=== PATIENT | male | born 1955 | race Caucasian/White ===

== ENCOUNTER 2018-12-10 16:29 | Inpatient (IN) | payer BC ==
[2018-12-10] MEDS ORDERED: Aspirin 81 mg CHEW TAB* 81 MG TAB.CHEW ONE (16:35)
[2018-12-10] MEDS ORDERED: Nitroglycerin TAB 0.4 MG* 0.4 MG TAB ONE (16:35)
[2018-12-10] MEDS ORDERED: Ticagrelor* 90 MG TAB PO ONE ×3 (16:36→19:52)
[2018-12-10] MEDS ORDERED: nitroGLYCERIN DRIP* 0 MCG/0 ML BTL ONE (16:36)
[2018-12-10] MEDS ORDERED: Morphine 4 MG/ML VIAL (1 ml) 4 MG/ML VIAL ONE (16:36)
[2018-12-10] MEDS ORDERED: Ondansetron INJ* 2 MG/ML VIAL ONE (16:36)
[2018-12-10] MEDS ORDERED: Heparin for STEMI(*) 5,000 UNITS/ML 1 ML VIAL IV ONE ×2 (16:36→16:37)
[2018-12-10] MEDS ORDERED: Aspirin 81 mg CHEW TAB* 81 MG TAB.CHEW PO ONE (16:37)
[2018-12-10] MEDS ORDERED: NS 0.9% 1000 ML** 1,000 ML IV ONE (16:37)
--- NOTE | 2018-12-10 16:44 | ED ---
HPI Chest Pain - HPI Summary HPI Summary: This patient is a 63 year old M presenting to [facility] with a chief complaint of CP since 1600. Patient states that he has chest pain that is characterized as burning. The patient rates the pain 8/10 in severity. Symptoms aggravated by nothing. Symptoms alleviated by nothing. Patient reports burning chest pain, nausea, and diaphoresis. Patient denies vomiting. Pt has hx HTN on lisinopril. Neg hx DM, Neg hx hyperlipidemia. Nonsmoker. +fam hx CAD. Pt has no prior hx CAD or CT. Pt does not take a daily ASA. Pt drove himself to the ED. 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 Allergies Allergy/AdvReac Type Severity Reaction Status Date / Time No Known Allergies Allergy Verified 12/10/18 17:07 - History of Current Complaint Hx Obtained From: Patient Onset/Duration: Started Hours Ago - "1/2 hour ago" Timing: Constant Initial Severity: Moderate Current Severity: Severe Pain Intensity: 8 Pain Scale Used: 0-10 Numeric Chest Pain Location: Diffuse Chest Pain Radiates: No Character: Burning Aggravating Factor(s): Nothing Alleviating Factor(s): Nothing Associated Signs and Symptoms: Positive: Chest Pain, Diaphoresis, Nausea. Negative: Vomiting - Allergy/Home Medications Allergies/Adverse Reactions: Allergies Allergy/AdvReac Type Severity Reaction Status Date / Time No Known Allergies Allergy Verified 12/10/18 17:07 PMH/Surg Hx/FS Hx/Imm Hx Previously Healthy: No Cardiovascular History: Reports: Hx Hypertension - Surgical History Surgical History: None Infectious Disease History: No - Family History Known Family History: Positive: Cardiac Disease - Social History Alcohol Use: None Hx Substance Use: No Substance Use Type: Reports: None Hx Tobacco Use: No Smoking Status (MU): Never Smoked Tobacco Review of Systems Positive: Skin Diaphoresis Positive: Chest Pain Respiratory: Negative Positive: Nausea. Negative: Vomiting Positive: no symptoms reported Musculoskeletal: Negative Skin: Negative Neurological: Negative Psychological: Normal All Other Systems Reviewed And Are Negative: Yes Physical Exam - Summary Physical Exam Summary: Appearance: Ill-appearing, severe pain distress, well-nourished Skin: Warm, color reflects adequate perfusion, diaphoretic Head: Normal Head/Face inspection, atraumatic Eyes: Conjunctiva clear ENT: Normal inspection Neck: Supple, no nodes, no JVD Respiratory: Lungs clear, normal breath sounds, no respiratory distress Cardio: RRR, No murmur, pulses normal, brisk capillary refill Abdomen: Soft, nontender Bowel sounds: Present Musculoskeletal: Strength Intact/ROM intact, no calf tenderness, no edema. Psychological: Normal Neuro: Alert, muscle tone normal, no focal deficit Triage Information Reviewed: Yes Vital Signs Reviewed: Yes Diagnostics - Laboratory Result Diagrams: 12/10/18 16:38 12/10/18 16:38 Lab Statement: Any lab studies that have been ordered have been reviewed, and results considered in the medical decision making process. - Radiology Chest Xray Radiology Interpretation Completed By: ED Physician Summary of Radiographic Findings: Chest Xray reveal, per radiologist, cardiomegaly without evidence for pulmonary edema. ED Physician has reviewed this report. - EKG 1631 Cardiac Rate: NL - 93 bpm EKG Rhythm: Sinus Rhythm ST Segment: Non-Specific - not "Non-Specific"; nlAVIVCT nlQTc 3mm STelevation V1 -V5 w/o recip changes Ectopy: None EKG Comparison: Other - no prior to compare Summary of EKG Findings: SR, anterior wall STEMI. Re-Evaluation - Re-Evaluation First Eval Re-Evaluation Time: 16:32 Change: Unchanged Comment: Dr. Love saw patient in sub waiting. STEMI called in sub waiting. Patient was brought directly to room. Dr. Love was in room continuously with Dr. Back and hospital laboratory technician team until pt was taken to the hospital laboratory technician. Chest Pain Course/Dx - Course Course Of Treatment: This patient is a 63 year old M presenting to [facility] by private car with a chief complaint of CP since 1600. EKG done in subwaiting showed anterior wall STEMI and STEMI alert was called. Test results with no significant abnormalities except for Potassium 2.8, Anion Gap 15, Creatinine 1.25, Glucose 141, Lactic Acid 2.8, Troponin 0.07. Chest Xray reveals, per radiologist, cardiomegaly without evidence for pulmonary edema. ED Physician has reviewed this report. EKG shows SR, 93, 3mm ST elevations V1-V5, without reciprocal changes. In the ED course the patient was given Brilinta 180mg, Heparin 5,000 units, Aspirin [address] Back agrees with patient's STEMI and says to proceed with protocol. 1648 Patient is brought up to Rf Engineer. - Chest Pain Differential Diagnosis/HQI/PQRI: Acute CT, ACS - Diagnoses Provider Diagnoses: STEMI (ST elevation myocardial infarction), Hypertension, poor control, Hypokalemia During the Visit The Following Alert/Code Occurred: STEMI - Provider Notifications Discussed Care Of Patient With: Davidson Back - Cardiology Time Discussed With Above Provider: 16:35 Instructed by Provider To: Other - Dr. Back agrees with patient's STEMI and states to proceed with protocol. Dr. Back is present in the ED immediately after notification. 1648 Patient is brought up to Rf Engineer. - Critical Care Time Critical Care Time: 30-74 min - 19 minutes Discharge ED - Sign-Out/Discharge Documenting (check all that apply): Patient Departure - admi Patient Received Moderate/Deep Sedation with Procedure: No - Discharge Plan Condition: Stable Disposition: ADMITTED TO [facility] - Billing Disposition and Condition Condition: STABLE Disposition: Admitted to [facility] - Attestation Statements Document Initiated by Scribe: Yes Documenting Scribe: Aleida Jenkins Provider For Whom Shayla is Documenting (Include Credential): Dr. Vero Love MD Scribe Attestation: Aleida Kirkland scribed for Dr. Vero Love MD on 12/10/18 at 2334. Scribe Documentation Reviewed: Yes Provider Attestation: The documentation as recorded by the Aleida caraballo accurately reflects the service I personally performed and the decisions made by me, Dr. Vero Love MD Status of Scribe Document: Viewed
[2018-12-10 16:52] LABS: ABS Basophils 0.1 10^3/ul (0-0.2); ABS Eosinophils 0.1 10^3/ul (0-0.6); ABS Lymphocytes 2.7 10^3/ul (1.0-4.8); ABS Monocytes 0.9 10^3/ul (0-0.8); ABS Neutrophils 6.6 10^3/ul (1.5-7.7); Eosinophil % 1.2 %; Hematocrit 44 % (42-52); Hemoglobin 15.5 g/dL (14.0-18.0); Lymphocyte % 26.1 %; Mean Corpuscular HGB Conc 36 g/dL (31-36); Mean Corpuscular Hemoglobin 30 pg (27-31); Mean Corpuscular Volume 85 fL (80-94); Platelet Count 339 10^3/uL (150-450); Red Blood Count 5.15 10^6 /uL (4.18-5.48); Red Cell Distribution Width 13 % (10-15); White Blood Count 10.4 10^3/uL (3.5-10.8)
[2018-12-10 17:00] LABS: Activated Partial Thrombo Time 30.9 seconds (26.0-38.0); INR 0.95 (0.82-1.09)
[2018-12-10 17:13] LABS: ALT 21 U/L (7-52); AST 21 U/L (13-39); Albumin 4.8 g/dL (3.2-5.2); Albumin/Globulin Ratio 1.6 (1-3); Alkaline Phosphatase 78 U/L (34-104); Anion Gap 15 mmol/L (2-11); BUN/Creatinine Ratio 16.8 (8-20); Blood Urea Nitrogen 21 mg/dL (6-24); CO2 Carbon Dioxide 23 mmol/L (22-32); Calcium 9.8 mg/dL (8.6-10.3); Chloride 105 mmol/L (101-111); Creatine Kinase 146 U/L (10-223); EGFR African American 70.6 (>60); EGFR Non-African American 58.3 (>60); Glucose 141 mg/dL (70-100); LDL Cholesterol Direct 121 mg/dL; Potassium 2.8 mmol/L (3.5-5.0); Sodium 143 mmol/L (135-145); Total Protein 7.8 g/dL (6.4-8.9)
[2018-12-10 17:16] LABS: CKMB ng/mL 2.9 ng/mL (0.6-6.3)
[2018-12-10 17:20] LABS: Troponin I 0.07 ng/mL (<0.04)
[2018-12-10] MEDS ORDERED: Bivalirudin(*) 250 MG VIAL ONE ×2 (18:06)
[2018-12-10] MEDS ORDERED: Metoprolol Tartrate IV* 1 MG/ML 5 ML VIAL ONE ×2 (18:28→18:32)
[2018-12-10] MEDS ORDERED: fentaNYL* 50 MCG/ML 2 ML VIAL (100 MCG VIAL) IV PRN (18:42)
[2018-12-10] MEDS ORDERED: Acetaminophen TAB* 325 MG PO PRN (18:42)
[2018-12-10] MEDS ORDERED: Docusate CAP* 100 MG PO PRN (18:42)
[2018-12-10] MEDS ORDERED: Nitroglycerin TAB 0.4 MG* 0.4 MG TAB SL PRN (18:42)
[2018-12-10] MEDS ORDERED: Zolpidem TAB* 5 MG PO PRN (18:42)
[2018-12-10] MEDS ORDERED: Ondansetron INJ* 2 MG/ML VIAL IV PRN (18:42)
[2018-12-10] MEDS ORDERED: NS 0.9% 1000 ML** 1,000 ML IV SCH (18:45)
[2018-12-10] MEDS ORDERED: Amiodarone 360 MG IVPREMIX* 360 MG/200 ML BAG IV ONE (18:51)
[2018-12-10] MEDS ORDERED: Atorvastatin* 80 MG TAB PO ONE (19:07)
[2018-12-10] MEDS ORDERED: Metoprolol Tartrate TAB* 25 MG ONE (19:46)
[2018-12-10] MEDS ORDERED: Atorvastatin* 80 MG TAB ONE (19:46)
[2018-12-10] MEDS: Metoprolol Tartrate TAB* 25 MG PO SCH (19:48)
[2018-12-10] MEDS: Ticagrelor* 90 MG TAB PO SCH (19:53)
[2018-12-10] MEDS ORDERED: Heparin DRIP 25,000 UNITS(*) 25,000 UNITS/500 ML BAG IV SCH (22:00)
[2018-12-10 22:01] LABS: Creatine Kinase 750 U/L (10-223)
[2018-12-10 22:06] LABS: CKMB ng/mL 91.6 ng/mL (0.6-6.3)
[2018-12-10 22:07] LABS: Troponin I 12.61 ng/mL (<0.04)
[2018-12-10] MEDS ORDERED: Potassium Chlor TAB* 20 MEQ TAB.ER PO ONE (22:11)
[2018-12-10] MEDS: Heparin VIAL(*) 5000 UNITS/ML VIAL (FIVE THOUSAND) IV SCH (23:26)
[2018-12-10] MEDS: Amiodarone 360 MG IVPREMIX* 360 MG/200 ML BAG IV SCH (23:56)
[2018-12-11] MEDS: Metoprolol Tartrate TAB* 25 MG PO SCH ×3 (03:04→20:04)
[2018-12-11 03:20] LABS: ABS Basophils 0.1 10^3/ul (0-0.2); ABS Eosinophils 0.1 10^3/ul (0-0.6); ABS Lymphocytes 1.7 10^3/ul (1.0-4.8); ABS Monocytes 0.9 10^3/ul (0-0.8); ABS Neutrophils 10.2 10^3/ul (1.5-7.7); Eosinophil % 0.4 %; Hematocrit 41 % (42-52); Hemoglobin 14.2 g/dL (14.0-18.0); Lymphocyte % 13.1 %; Mean Corpuscular HGB Conc 35 g/dL (31-36); Mean Corpuscular Hemoglobin 30 pg (27-31); Mean Corpuscular Volume 85 fL (80-94); Mean Platelet Volume 7.1 fL (7.4-10.4); Nucleated Red Blood Cells % 0.1; Platelet Count 316 10^3/uL (150-450); Red Cell Distribution Width 13 % (10-15); White Blood Count 12.9 10^3/uL (3.5-10.8)
[2018-12-11 03:48] LABS: ALT 30 U/L (7-52); AST 114 U/L (13-39); Albumin/Globulin Ratio 1.5 (1-3); Alkaline Phosphatase 66 U/L (34-104); Anion Gap 8 mmol/L (2-11); Blood Urea Nitrogen 15 mg/dL (6-24); CO2 Carbon Dioxide 26 mmol/L (22-32); Calcium 8.6 mg/dL (8.6-10.3); Chloride 108 mmol/L (101-111); Cholesterol 156 mg/dL; Creatine Kinase 1211 U/L (10-223); EGFR African American 84.5 (>60); EGFR Non-African American 69.8 (>60); Globulin 2.6 g/dL (2-4); Glucose 127 mg/dL (70-100); HDL Cholesterol 45.6 mg/dL; LDL Cholesterol 97 mg/dL; Sodium 142 mmol/L (135-145); Total Protein 6.6 g/dL (6.4-8.9); Triglycerides 69 mg/dL
[2018-12-11 03:52] LABS: CKMB ng/mL 141.8 ng/mL (0.6-6.3)
[2018-12-11 03:53] LABS: Troponin I 25.21 ng/mL (<0.04)
[2018-12-11] MEDS ORDERED: Lisinopril TAB* 10 MG PO SCH ×3 (09:00)
[2018-12-11] MEDS ORDERED: Potassium Chlor TAB* 20 MEQ TAB.ER PO ONE ×2 (09:18→23:00)
[2018-12-11 09:39] LABS: Creatine Kinase 1264 U/L (10-223)
[2018-12-11 09:43] LABS: CKMB ng/mL 119.6 ng/mL (0.6-6.3)
[2018-12-11 09:45] LABS: Troponin I 20.85 ng/mL (<0.04)
[2018-12-11] MEDS ORDERED: Amiodarone TAB* 200 MG PO SCH (10:00)
[2018-12-11] MEDS: Ticagrelor* 90 MG TAB PO SCH ×2 (10:02→20:04)
[2018-12-11] MEDS: Lisinopril TAB* 10 MG PO SCH (10:03)
[2018-12-11] MEDS: Aspirin 81 mg CHEW TAB* 81 MG TAB.CHEW PO SCH (10:04)
--- NOTE | 2018-12-11 10:14 | HP ---
CC: Irving MooreSU flanagan - fax [phone] * ADMISSION HISTORY AND PHYSICAL: DATE OF ADMISSION: 12/10/18 CHIEF COMPLAINT: The patient presents with severe chest burning with shortness of breath, nausea, and diaphoresis with EKG demonstrating acute ST segment elevation, anterior wall myocardial infarction. HISTORY OF PRESENT ILLNESS: The patient is a 63-year-old gentleman with no prior known history of coronary artery disease. Specifically, he denies any history of myocardial infarction, congestive heart failure, also of any significant heart rhythm disturbance. He has a history of hypertension. Of note a couple of days prior to admission, he was chopping some wood and noted mild chest burning, but it went away with stopping what he was doing. On the day of admission, he was trap shooting at the [employer] and when he was finished, he started developing chest burning again with some diaphoresis and nauseousness and some shortness of breath. It persisted, and as such, rather than driving all the way home back to [place], he came to the emergency room at [facility]. EKG demonstrated an acute ST segment elevation anterior wall myocardial infarction and STEMI alert was called. The patient received heparin, Brilinta, and aspirin therapy. When I saw him, he was still having active symptoms, although feeling somewhat better. The risks and benefits were explained; he understood them and wished to proceed. We therefore proceeded to the cardiovascular lab for possible intervention. PAST MEDICAL HISTORY: Includes hypertension. Specifically, he has no history of diabetes or increased cholesterol. Cardiac risk factors include hypertension. No diabetes, no hyperlipidemia. No family history of heart disease. No smoking. He does have mild obesity. REVIEW OF SYSTEMS: Pertinent proceeding to the cardiovascular laboratory included no history of stroke, TIA. No contrast allergy. No history of hematochezia, hematemesis, or hematuria. PHYSICAL EXAMINATION VITAL SIGNS: In the emergency room revealed blood pressure elevated at 189/113 , pulse 97, respirations 18, 100% O2 saturation. NECK: Supple with no increased JVP. CHEST: Clear to A and P with no active rales, rhonchi, or wheezes. HEART: Revealed no palpable heaves or thrills. Heart sounds in general were distant, but no significant systolic or diastolic murmur. ABDOMEN: Soft, nontender. Mildly obese without organomegaly. EXTREMITIES: Without clubbing, cyanosis, jaxon pitting edema. Peripheral pulses were intact. Femoral pulse noted without bruits. NEURO: The patient is alert and oriented with normal mentation. MUSCULOSKELETAL: The patient will normal gait. PSYCHIATRIC: The patient with normal affect. DIAGNOSTIC STUDIES/LAB DATA: Laboratory results - pending at the time of assessment. In the emergency room, EKG revealed sinus rhythm, heart rate 93, ST segment elevation diffusely seen in V1 through V5, II, III, and aVF, RSR prime in V1 suggesting incomplete right bundle-branch block. Chest x-ray per Dr. Love, emergency room physician, showed no widening of the mediastinum and no significant CHF. OVERALL ASSESSMENT: Mr. Garcia presents now in acute throes of an ST segment elevation anterior wall myocardial infarction. He is appropriately being given heparin therapy, aspirin, and ticagrelor and we will proceed emergently to the cardiovascular laboratory. Further management will be made pending results of the catheterization. [id number]/[facility] #: [id number] MTDD
[2018-12-11] MEDS: Amiodarone 360 MG IVPREMIX* 360 MG/200 ML BAG IV SCH (11:31)
[2018-12-11] MEDS: Heparin VIAL(*) 5000 UNITS/ML VIAL (FIVE THOUSAND) IV SCH ×2 (11:31→18:34)
--- NOTE | 2018-12-11 16:00 | CATH ---
CC: Irving Johnson NP, [place], [place], fax number [phone], phone number [phone] * CARDIAC CATHETERIZATION AND INTERVENTIONAL REPORT: DATE OF PROCEDURE: 12/11/18 - ROOM #ICU-08 INDICATION FOR PROCEDURE: The patient presents with acute ST segment elevation anterior wall myocardial infarction. PROCEDURE: Coronary arteriography, balloon angioplasty and stenting of the mid left anterior descending artery utilizing a 3.0 x 38 mm long Synergy drug- eluting stent overlapped more proximally with a 3.5 x 15 mm Xience drug-eluting stent proximally dilated to 4.1 to 4.2 mm, balloon angioplasty and placement of a 3.5 x 12 mm long Synergy drug-eluting stent in the mid diagonal proximal to ostial portion, left heart catheterization. CONSENT: The patient was interviewed and examined in the emergency room, where the risks and benefits were explained. He understood them and wished to proceed. EQUIPMENT UTILIZED: 1. The right radial artery sheath was a 6-Congolese Glidesheath slender. The diagnostic coronary catheter was a TIG4 catheter. 2. The interventional guide catheter was a 6-Congolese IL 3.5 curve left coronary artery guide catheter. 3. Interventional wires included 2 All Star 190 cm length wires, BMW 190 cm length wire as well. 4. Balloon angioplasty catheters utilized: A NC 3.0 x 20 mm long Emerge balloon, an NC 3.0 x 12 mm long balloon, an NC 3.0 x 8 mm long balloon, a NC 3.5 x 12 mm long balloon, an NC Emerge 4.0 x 8 mm long balloon, a 2.75 x 20 mm long Emerge balloon, and a 2.75 x 8 mm long NC Emerge balloon. 5. Stents utilized included a 3.0 x 38 mm long stent in the mid LAD overlapped distally with a 3.0 x 8 mm long Synergy drug-eluting stent, a 3.5 x 18 mm Xience Sarah stent overlapping the LAD stent proximally, and a 3.5 x 12 mm long Synergy drug-eluting stent in the mid diagonal branch. 6. The left heart catheterization catheter was a 5-Congolese PIG short radial catheter. The closure device utilized was a regular length Vasc Band by [employer]. MEDICATIONS GIVEN DURING THE PROCEDURE: Included: 1. 1% Xylocaine locally. 2. A radial artery sheath was given once the radial artery was cannulated including 300 mcg of nitroglycerin and 3 mg of verapamil. 3. The patient received amiodarone bolus and amiodarone drip. 4. The patient had an Angiomax bolus and an Angiomax drip for a subtherapeutic ACT. 5. The patient also received intravenous Lopressor for heart rate control of atrial fibrillation. 6. The patient received Versed and fentanyl for sedation. DESCRIPTION OF PROCEDURE: The patient was brought to the cardiovascular laboratory where a formal time-out was performed. He was prepped and draped in sterile fashion and under ultrasound guidance, the right radial artery was cannulated and sheath was placed. Diagnostic coronary arteriography was performed. Decision was then made to intervene into the left anterior descending artery. ACT was checked and found to be subtherapeutic and as such, Angiomax bolus and Angiomax drip was started. An All Star wire was advanced down the left anterior descending artery and balloon angioplasty was performed to reestablish flow to the subtotally occluded mid LAD with AIMEE 1 at best flow. A BMW wire was then advanced into the second diagonal branch. The patient developed ventricular fibrillation and was defibrillated out of this. An amiodarone bolus of 150 mg and an amiodarone drip at 1 mg per hour was started. The Synergy 3.0 x 38 mm long stent was advanced to the mid LAD and deployed. Following this, the decision was made to place a 3.0 x 8 mm long stent distal to the mid LAD stent. This was deployed. Post-deployment balloon inflations were made. Following this, attempts were made to deliver the stent to the diagonal branch, a 3.5 x 12 mm long stent that could not be deployed, as such balloon dilatation was first performed to that diagonal branch and then the stent was delivered. Balloon angioplasty in the LAD was performed after stent deployment to crush the portion that extended mildly into the LAD. Following this, the 3.5 x 15 mm long Xience Sarah stent was deployed. Prior to that, the diagonal branch had been rewired and balloon angioplasty was performed to that ostium before placing the LAD stent. The diagonal branch was then rewired after the stent was placed in the LAD proximal and balloon dilatation to the side branch into the diagonal branch was performed. Finally, balloon angioplasty to the LAD itself proximal stent was performed. At the end of the case, the artery was assessed both with the wires in place and wires removed. Following this, left heart catheterization was performed. At the end of the case, the catheter and sheath were removed and hemostasis was obtained with a Vasc Band and the reverse Barbeau was a B. The total contrast used was 180 cc of Omnipaque dye. The radiation exposure included 27.1 minutes of fluoro time. The air kerma radiation was 2898 milligray. The DAP radiation was 16,345 microgray per meter squared. RESULTS: HEMODYNAMIC DATA: Left heart catheterization: Central aortic pressure was recorded at 140/85 with a mean of 112, left ventricular pressure 144 over left ventricular end- diastolic pressure of 15. CORONARY ARTERIOGRAPHY: A. Right coronary artery - a nondominant vessel supplying 2 acute marginal branches, no significant lesion was seen. Of note, off of the right coronary orifice is the circumflex artery, which traversed posteriorly and supplied multiple obtuse marginal branches and ending in a left-sided posterior descending artery. There were no significant lesions seen throughout the course of this vessel. B. Left coronary artery - supplying just the left anterior descending artery with its own orifice( again, the circumflex ectopically comes off the right coronary artery cusp). The left anterior descending artery had mild luminal irregularities proximally of 25% to 30%. In the mid portion of the left anterior descending artery after takeoff of a large bifurcating diagonal branch, the LAD had subtotal occlusion with a 99% blockage with AIMEE-1 flow. The mid diagonal branch had an ostial 85% to 90% obstruction noted. INTERVENTION INTO LEFT ANTERIOR DESCENDING ARTERY: Successful recanalization of subtotally occluded left anterior descending artery mid portion with balloon angioplasty and placement of a 38 mm long x 3.0 mm Synergy drug-eluting stent overlapped distally with a 3.0 x 8 mm long Synergy drug-eluting stent and overlapped proximally with a 3.5 x 15 mm long Xience Sarah drug-eluting stent with proximal stent dilated to 4.0 to 4.2 mm and mid and distal stent dilated to 3.1 to 3.2 mm. INTERVENTION INTO OSTIUM OF THE MID DIAGONAL BRANCH: Successful reduction of significant 85% to 90% obstruction with balloon angioplasty and placement of a 3.5 x 12 mm long Synergy drug-eluting stent. Balloon dilatation of the LAD stents into the diagonal branch performed to open up access to diagonal branch. OVERALL ASSESSMENT: Successful intervention into both LAD and diagonal branch with stents in both. At this point in time, aggressive dual antiplatelet therapy for a minimum of a year and perhaps even longer given the dual stenting and partial crush technique should be carried out. Consideration for decreasing the Brilinta to 60 mg b.i.d. for a total of 18 months may be reasonable. Aggressive risk factor management with high-dose statin therapy and maintenance of his RODERICK inhibition therapy will be pursued in addition to beta-machelle therapy. He does not smoke, so we will not have to address that at this point. We will get an echocardiogram to look at his overall LV function. We will continue IV amiodarone. Hopefully, he will spontaneously convert back to sinus rhythm, but if he does not, consideration for starting oral amiodarone and possible electrical cardioversion will be addressed. In the meantime, we will consider starting him on a heparin drip for anticoagulation. [id number]/[facility] #: [id number] RONNIE
[2018-12-11] MEDS: Amiodarone TAB* 200 MG PO SCH ×2 (16:35→19:40)
[2018-12-11] MEDS: Atorvastatin* 80 MG TAB PO SCH (16:35)
[2018-12-11] MEDS: Amiodarone TAB* 400 MG PO SCH ×2 (16:39→22:42)
--- NOTE | 2018-12-11 19:23 | ECHO ---
*[facility]* [place] [address] Fax #: [phone] Transthoracic Echocardiogram Patient: Jose Garcia : 1955 Study Date: 12/11/2018 Age: 63 Gender: M HR: 83 bpm Height: 70 in /177.8 cm BSA: 2.15 m^2 Weight: 214.6 lb /97.5 kg BMI: 30.8 kg/m^2 *Gullet Slitter: * Cassandra Wade [facility] *Referring Physician: * Davidson Back MD *Reading Physician: * Rhonda Jara MD Indications: Myocardial Infarction (new). History: S/P PCI 12/10/18. Risk factors: Hypertension. Conclusions Summary: - Left ventricle: The cavity size is normal. Wall thickness is mildly increased. Systolic function is moderately reduced. The estimated ejection fraction is 35-40%. Severe hypokinesis of the anterior septum and apical polo. - Mitral valve: There is mild regurgitation. - Tricuspid valve: There is trace to mild regurgitation. - No previous echocardiogram available. Study data: Transthoracic echocardiogram. Procedure: Transthoracic echocardiography was performed. Image quality was good. Complete 2D, spectral Doppler, and color flow Doppler. Location: ICU Patient status: Inpatient. Patient room number: 8. Rhythm: Atrial fibrillation. Findings Left ventricle: The cavity size is normal. Wall thickness is mildly increased. Systolic function is moderately reduced. The estimated ejection fraction is 35-40%. Regional wall motion abnormalities: Hypokinesis of the apical myocardium. Severe hypokinesis of the anterior septum and apical polo. Left ventricular diastolic function parameters are indeterminate. Right ventricle: Well visualized. The cavity size is normal. Wall thickness is normal. Systolic function is normal. Ventricular septum: Well visualized. The ventricular septum is normal. Left atrium: Well visualized. The atrium is normal in size. Right atrium: Well visualized. The atrium is normal in size. Atrial septum: Well visualized. No defect or patent foramen ovale is identified. Mitral valve: Well visualized. The leaflets are mildly thickened. No echocardiographic evidence for prolapse. There is no evidence of stenosis. There is mild regurgitation. Aortic valve: Well visualized. The valve is trileaflet. The leaflets are normal thickness. There is no evidence of stenosis. There is no significant regurgitation. Tricuspid valve: Well visualized. The leaflets are normal thickness. There is no evidence of stenosis. There is trace to mild regurgitation. Pulmonic valve: Well visualized. The leaflets are normal thickness. There is no evidence of stenosis. There is physiologic regurgitation. Aorta: The aorta is well visualized and normal size. The aortic root appears normal. The aortic arch appears normal. Pericardium: There is no pericardial effusion. No evidence of pleural fluid accumulation. Pulmonary arteries: Well visualized. Systemic veins: Well visualized. Inferior vena cava: There is (< 50%) respiratory change in the IVC dimension. Pulmonary veins: Visualization of the pulmonary venous anatomy is incomplete, but a significant abnormality is unlikely. Measurements Left ventricle Value Ref Aortic valve Value Ref THERESA, LAX 4.8 cm 4.2 - Andrés diam, ED 2.3 cm ----- 5.8 Andrés diam/bsa, ED 1.1 cm/m^2 ----- ESD, LAX 3.7 cm 2.5 - Peak v, S 0.84 m/sec ----- 4.0 VTI, S 12.6 cm ----- FS, LAX (L) 24 % 25 - 43 Mean grad, S 1.0 mm Hg ----- PW, ED, LAX (H) 1.2 cm 0.6 - Peak grad, S 3.0 mm Hg ----- 1.0 LVOT/AV, VTI ratio 1.05 ----- FS (L) 24 % 25 - 43 Mid-wall FS 12 % -------- Mitral valve Value Ref PW, ED (H) 1.2 cm 0.6 - Peak E 0.95 m/sec ----- 1.0 Decel time 145 ms ----- PW/ID, ED 0.25 -------- Peak grad, D 3.6 mm Hg ----- E', lat andrés, TDI (L) 8.7 cm/sec >=10.0 E/e', lat andrés, TDI 11 -------- Pulmonic valve Value Ref E', med andrés, TDI 7.3 cm/sec >=7.0 Peak v, S 0.59 m/sec - ---- E/e', med andrés, TDI 13 -------- Peak grad, S 1.0 mm Hg ---- - E', avg, TDI 8.0 cm/sec -------- E/e', avg, TDI 12 <=14 Tricuspid valve Value R ef TR peak v 2.15 m/sec <=2.8 LVOT Value Ref Peak RV-RA grad, S 18 mm Hg ----- Peak devorah, S 0.75 m/sec -------- Max TR devorah 2.12 m/sec ----- VTI, S 13.2 cm -------- Mean grad, S 1 mm Hg -------- Aortic root Value Ref Root diam 3.6 cm <4.3 Ventricular septum Value Ref Root max diam, ED 3.6 cm <4.3 IVS, ED 0.8 cm 0.6 - 1.0 Ascending aorta Value Ref AAo AP diam, S 3.9 cm ----- Right ventricle Value Ref AAo AP diam/bsa, S 1.8 cm/m^2 ----- THERESA, LAX 3.8 cm -------- THERESA minor ax, A4C 3.2 cm 1.9 - Aortic arch Value Ref mid 3.5 Arch diam 2.5 cm ----- Left atrium Value Ref Decending aorta Value Ref ML dim, A4C 4.3 cm -------- Marisela peak devorah 0.48 m/sec ----- SI dim, A4C 5.1 cm -------- Vol/bsa, ES, 1-p 25 ml/m^2 12 - 37 Inferior vena cava Value Ref A4C Diam 2.0 cm ----- Vol/bsa, ES, A/L 34 ml/m^2 16 - 34 Right atrium Value Ref SI dim, ES 4.7 cm 3.4 - 5.3 ML dim, ES, A4C 3.8 cm 2.6 - 4.4 SI dim, ES, A4C 4.7 cm 3.4 - 5.3 SI dim/bsa, ES, A4C 2.2 cm/m^2 1.8 - 3.0 Estimated RAP 8 mm Hg -------- Legend: (L) and (H) isaac values outside specified reference range. Prepared and electronically signed by Rhonda Jara MD 12/11/2018 19:18
[2018-12-11] MEDS: KCL 20 MEQ/100 ML IVPREMIX* 20 MEQ/100 ML BAG IV SCH ×2 (20:26→22:41)
[2018-12-12] MEDS: Metoprolol Tartrate TAB* 25 MG PO SCH ×3 (05:10→18:06)
[2018-12-12 05:54] LABS: BUN/Creatinine Ratio 16.7 (8-20); Calcium 8.7 mg/dL (8.6-10.3); EGFR Non-African American 61.1 (>60); Potassium 2.9 mmol/L (3.5-5.0)
[2018-12-12] MEDS: Amiodarone TAB* 400 MG PO SCH (08:08)
[2018-12-12] MEDS: Ticagrelor* 90 MG TAB PO SCH ×2 (08:23→20:33)
[2018-12-12] MEDS: Aspirin 81 mg CHEW TAB* 81 MG TAB.CHEW PO SCH (08:23)
[2018-12-12] MEDS: Potassium Chlor TAB* 20 MEQ TAB.ER PO SCH ×2 (08:24→20:32)
[2018-12-12] MEDS: Lisinopril TAB* 10 MG PO SCH (08:24)
[2018-12-12 09:27] LABS: Magnesium 1.9 mg/dL (1.9-2.7)
[2018-12-12] MEDS: Enoxaparin(*) 40 MG/0.4 ML SYR SUBCUT SCH (13:29)
[2018-12-12] MEDS: Pantoprazole TAB * 40 MG TAB PO SCH (13:29)
[2018-12-12] MEDS: Atorvastatin* 80 MG TAB PO SCH (18:06)
[2018-12-13 07:26] LABS: BUN/Creatinine Ratio 18.5 (8-20); Calcium 8.7 mg/dL (8.6-10.3); EGFR African American 71.2 (>60); EGFR Non-African American 58.9 (>60); Potassium 3.3 mmol/L (3.5-5.0)
[2018-12-13] MEDS ORDERED: Influenza VAC *QUAD* 2019-20* 0.5 ML SYRINGE IM ONE (08:00)
[2018-12-13] MEDS: Pantoprazole TAB * 40 MG TAB PO SCH (09:05)
[2018-12-13] MEDS: Aspirin 81 mg CHEW TAB* 81 MG TAB.CHEW PO SCH (09:07)
[2018-12-13] MEDS: Lisinopril TAB* 10 MG PO SCH (09:07)
[2018-12-13] MEDS: Metoprolol Succinate XL TAB* 50 MG PO SCH ×2 (09:07→20:20)
[2018-12-13] MEDS: Potassium Chlor TAB* 20 MEQ TAB.ER PO SCH ×2 (09:07→20:19)
[2018-12-13] MEDS: Ticagrelor* 90 MG TAB PO SCH ×2 (09:07→20:19)
[2018-12-13] MEDS: Enoxaparin(*) 40 MG/0.4 ML SYR SUBCUT SCH (12:59)
[2018-12-13] MEDS: Atorvastatin* 80 MG TAB PO SCH (18:12)
[2018-12-14 08:02] LABS: BUN/Creatinine Ratio 18.5 (8-20); Calcium 9.2 mg/dL (8.6-10.3); EGFR African American 67.5 (>60); EGFR Non-African American 55.8 (>60); Potassium 3.5 mmol/L (3.5-5.0)
[2018-12-14 08:38] VITALS: BP 131/77
[2018-12-14] MEDS: Ticagrelor* 90 MG TAB PO SCH (09:39)
[2018-12-14] MEDS: Pantoprazole TAB * 40 MG TAB PO SCH (09:39)
[2018-12-14] MEDS: Aspirin 81 mg CHEW TAB* 81 MG TAB.CHEW PO SCH (09:39)
[2018-12-14] MEDS: Metoprolol Succinate XL TAB* 50 MG PO SCH (09:40)
[2018-12-14] MEDS: Lisinopril TAB* 10 MG PO SCH (09:41)
[2018-12-14] MEDS: Potassium Chlor TAB* 20 MEQ TAB.ER PO SCH (10:02)
--- NOTE | 2018-12-14 10:48 | DS ---
CC: Alex Villatoro NP; Dr. Dayne Gross * DISCHARGE SUMMARY: DATE OF ADMISSION: 12/10/18 DATE OF DISCHARGE: 12/14/18 FINAL DIAGNOSES: 1. Acute RA-nqvratv-ypjuimgqa anterior wall myocardial infarction. 2. Essential hypertension. 3. Hyperlipidemia. 4. Obesity. DISCHARGE MEDICATIONS: 1. Lisinopril 20 mg once a day. 2. Potassium 20 mEq twice a day. 3. Aspirin 81 mg a day. 4. Atorvastatin 80 mg a day. 5. Metoprolol succinate 50 mg twice a day. 6. Nitroglycerin sublingually as needed. 7. Ticagrelor 90 mg b.i.d. HISTORY OF PRESENT ILLNESS: The patient is a pleasant 63-year-old gentleman who presented to [facility] in the throes of an acute ST-segment- elevation myocardial infarction on the day of admission. He was taken emergently to the cardiovascular laboratory and underwent emergent cardiac catheterization. It revealed a subtotally occluded mid LAD with TIMI1 flow at best as well as a critical mid diagonal branch ostial/proximal lesion. He underwent multiple stent placements to both the LAD and the diagonal branch. Please refer to the cardiac catheterization for complete details. His hospital course revealed that he had a peak troponin of 25.21 on troponins check. His EKG demonstrated the development of significant T-wave inversions in the anterior leads with a Q wave in V1, a small R in V2, and continued Rs in the rest of the precordial leads. He did not develop significant Q waves. An echocardiogram performed early in the hospitalization revealed an overall EF recorded at 35% to 40% with severe hypokinesis of the anterior septal wall and apical region. There was mild mitral regurgitation and trace to mild tricuspid regurgitation. During the hospital course, he was up and about without significant symptoms and medications were titrated. PHYSICAL EXAMINATION: On the day of discharge, he was stable walking the halls with no symptoms, no radial artery discomfort. Examination revealed vital signs before medications, blood pressure 131/71 with pulse of 74, respirations 18, O2 saturation 100%. Neck was supple with no increased JVP. Lungs were clear. Heart revealed a regular rate and rhythm with no significant murmur. Abdomen was mildly obese, soft, and nontender. Extremities: Without edema. The right radial artery showed excellent antegrade flow on reverse Ridge sign. Neuro: He was alert and oriented. Musculoskeletal: He walked with normal gait. Psychiatric: Normal affect. Mouth: Moist mucosa. Eyes: Conjunctivae pink. Sclerae clear. LABORATORY DATA: Laboratory results revealed sodium 141, potassium 3.5, chloride 110, bicarb 25, BUN and creatinine 24 and 1.3. DISCHARGE PLAN: The patient will have a followup appointment with Dr. Glenys Delarosa, my partner, within the next 5 days to check his radial artery site and from then on, he prefers being followed up at [facility] with Dr. Dayne Gross, our procurement engineer in the group who sees patients at [facility]. We will facilitate this. I have asked him to follow up with his family doctor. The family doctor is Alex Villatoro, nurse practitioner, fax number [phone]. The patient should follow up in 1 to 2 weeks to keep an eye on his potassium, which we have had to supplement during the hospital course and to keep an eye on his BUN and creatinine, which is slightly elevated. I have urged him to consider cardiac rehab as I believe it will be very helpful for him going forward starting to get back into an exercise program, which he wants to pursue. He was given his cardiac education booklet, his stent cards, and I answered all of his questions to his satisfaction. He is being discharged to home in stable condition. [id number]/[facility] #: [id number] RONNIE
[2018-12-14] MEDS ORDERED: Potassium Chlor TAB* 20 MEQ TAB.ER PO SCH (13:00)
--- NOTE | 2018-12-22 17:04 | HP ---
HISTORY AND PHYSICAL: ADDENDUM: FAMILY HISTORY: There is no significant history of early heart disease noted. SOCIAL HISTORY: The patient does not smoke or use illicit drugs. [id number]/[facility] [place] #: [id number] RONNIE
== END 2018-12-14 13:05 | disposition home or self-care (01) | DRG 174 ==
LOC: ED 16:29 → CHICATH 17:01 → ICU 18:56 → MEDTELE 12-12 15:49
PROVIDERS: ADMIT Internal Medicine Cardiovascular Disease; ATTEND Internal Medicine Cardiovascular Disease
PROC: B2111ZZ Fluoroscopy of Multiple Coronary Arteries using Low Osmolar Contrast (ICD-10-PCS; 2018-12-10)
PROC: 4A023N7 Measurement of Cardiac Sampling and Pressure, Left Heart, Percutaneous Approach (ICD-10-PCS; 2018-12-10)
PROC: 027136Z Dilation of Coronary Artery, Two Arteries with Three Drug-eluting Intraluminal Devices, Percutaneous Approach (ICD-10-PCS; principal; 2018-12-10 16:45)
DX: I21.09 ST elevation (STEMI) myocardial infarction involving other coronary artery of anterior wall (principal); I10 Essential (primary) hypertension; E78.5 Hyperlipidemia, unspecified; E66.9 Obesity, unspecified; I08.1 Rheumatic disorders of both mitral and tricuspid valves; E87.6 Hypokalemia; I25.10 Atherosclerotic heart disease of native coronary artery without angina pectoris; Z68.30 Body mass index [BMI] 30.0-30.9, adult; Z79.82 Long term (current) use of aspirin; Z79.02 Long term (current) use of antithrombotics/antiplatelets; Z82.49 Family history of ischemic heart disease and other diseases of the circulatory system
CPT/HCPCS: 36415; 71045; 76937; 80048; 80053; 80061; 82550; 82553; 83605; 83721; 83735; 83880; 84132; 84484; 85025; 85347; 85610; 85730; 86850; 86900; 86901; 87641; 90686; 93005; 93306; 96372; 99156; 99157; 99285; A9270-GY; C1725; C1769; C1876; C9601-LD; C9606-LD; J0282; J0583; J1644; J1650; J2270; J2405; J3480; J3490